=== PATIENT | male | born 1975 | race African-American/Black ===

== ENCOUNTER 2018-08-02 11:01 | Emergency (ER) | payer MEDICAID ==
[~2018-08-02] VITALS: Ht 185.4 cm; Wt 161.5 kg
[2018-08-02] MEDS ORDERED: ASPirin 81 mg TAB PO ONE (13:15)
[2018-08-02 13:51] LABS: Hematocrit 44.9 % (41.0-53.0); Hemoglobin 14.6 g/dL (13.5-17.5); Mean Corpuscular Hemoglobin 30.7 pg (28.0-32.0); Mean Corpuscular Hgb Conc. 32.6 g/dL (32.0-36.0); Mean Corpuscular Volume 94.3 fL (80.0-100.0); Platelet Count (auto) 284 10^3/uL (140-450); Red Blood Cells 4.76 10^6/uL (4.5-5.90); White Blood Cell 5.8 10^3/uL (4.4-10.8)
[2018-08-02 13:59] LABS: INR 0.93 (0.9-1.15); Partial Thromboplastin Time 22.8 sec (23.78-33.04)
[2018-08-02 14:24] LABS: Basophils % (manual) 0 (0.0-2.0); Blast Cells 0; Eosinophils % (manual) 0 (0-7); Metamyelocytes % 0; Myelocytes % 0; Promyelocytes % 0; Reactive Lymphocytes 0
[2018-08-02] MEDS ORDERED: MORPHINE SULF INJ 2 MG/ML SYRINGE 1ML IV ONE ×2 (14:30→19:45)
[2018-08-02] MEDS ORDERED: ONDANSETRON HCL 4 MG/2 ML VIAL IV ONE ×2 (14:30→19:45)
[2018-08-02 15:15] LABS: Urine Bacteria NONE SEEN /hpf (None Seen); Urine Blood Negative /uL (Negative); Urine Mucus FEW (None Seen); Urine Specific Gravity 1.016 (1.001-1.035); Urine WBC 4 /hpf (0 - 3)
[2018-08-02 16:18] LABS: Band Neutrophils % (manual) 2; Lymphocytes % (manual) 21 (10.0-50.0); Monocytes % (manual) 6 (0-12)
[2018-08-02 16:51] LABS: Albumin 3.6 g/dL (3.4-5.0); BUN/Creatinine Ratio 9.4; Calcium 8.8 mg/dL (8.5-10.1); Potassium 4.8 mmol/L (3.5-5.1)
[2018-08-02 16:53] LABS: Bilirubin, Total 0.3 mg/dL (0.2-1.0); Total Protein 9.2 g/dL (6.4-8.2)
[2018-08-02 20:10] VITALS: BP 148/83
== END 2018-08-02 20:21 | disposition short-term general hospital (02) ==
LOC: ER 11:06
DX: S22.058A Other fracture of T5-T6 vertebra, initial encounter for closed fracture (principal); R07.89 Other chest pain; I10 Essential (primary) hypertension; F17.210 Nicotine dependence, cigarettes, uncomplicated; X58.XXXA Exposure to other specified factors, initial encounter; Y93.89 Activity, other specified; Y99.8 Other external cause status; Y92.89 Other specified places as the place of occurrence of the external cause
CPT/HCPCS: 36415; 71046; 71250; 72128; 80053; 81001; 83735; 83880; 84443; 84484; 85007; 85027; 85379; 85610; 85730; 93005; 94761; 96374; 96375; 96376; 99291; J2270; J2405

== ENCOUNTER 2018-09-22 08:52 | Emergency (ER) | payer MEDICAID ==
[~2018-09-22] VITALS: Ht 185.4 cm; Wt 81.2 kg
[2018-09-22] MEDS ORDERED: ONDANSETRON HCL 4 MG/2 ML VIAL IM ONE (11:15)
[2018-09-22] MEDS ORDERED: HYDROmorphone HCL 2 MG/ML VL IM ONE (11:15)
[2018-09-22 12:21] VITALS: BP 130/95
== END 2018-09-22 12:28 | disposition home or self-care (01) ==
LOC: ER 08:55
DX: G89.4 Chronic pain syndrome (principal); M79.605 Pain in left leg; I10 Essential (primary) hypertension
CPT/HCPCS: 96372; 99283; J1170; J2405

== ENCOUNTER 2018-11-05 23:29 | Emergency (ER) | payer MEDICAID ==
[~2018-11-05] VITALS: Ht 181.6 cm; Wt 133.4 kg
[2018-11-06] MEDS ORDERED: ACETAMINOPHEN 325 MG TAB PO ONE
[2018-11-06 00:16] LABS: Basophils # (auto) 0 uL; Basophils % (auto) 0.5 % (0.0-2.0); Eosinophils # (auto) 0 uL; Eosinophils % (auto) 0.5 % (0.0-7.0); Hematocrit 38.8 % (41.0-53.0); Hemoglobin 12.7 g/dL (13.5-17.5); Lymphocytes # (auto) 0.5 uL; Lymphocytes % (auto) 13.5 % (10.0-50.0); Mean Corpuscular Hemoglobin 31.1 pg (28.0-32.0); Mean Corpuscular Hgb Conc. 32.7 g/dL (32.0-36.0); Monocytes # (auto) 0.2 uL; Monocytes % (auto) 6.2 % (0.0-12.0); Neutrophils # (auto) 3.1 uL; Neutrophils % (auto) 79.3 % (37.0-80.0); Nucleated Red Blood Cells % 0.4 %; Platelet Count (auto) 236 10^3/uL (140-450); Red Blood Cells 4.08 10^6/uL (4.5-5.90); Red Cell Distribution Width 16.3 % (11.8-14.3); White Blood Cell 3.9 10^3/uL (4.4-10.8)
[2018-11-06 00:39] LABS: Albumin 3.1 g/dL (3.4-5.0); BUN/Creatinine Ratio 9.4; Calcium 8.1 mg/dL (8.5-10.1); Potassium 3.6 mmol/L (3.5-5.1)
[2018-11-06 00:40] VITALS: BP 120/64
[2018-11-06 00:41] LABS: Bilirubin, Total 0.4 mg/dL (0.2-1.0); Total Protein 8.8 g/dL (6.4-8.2)
[2018-11-06 01:23] LABS: Urine Amorphous Crystal FEW /hpf (None Seen); Urine Bacteria FEW /hpf (None Seen); Urine Blood TRACE /uL (Negative); Urine Hyaline Cast MOD /lpf (0 - 2); Urine Mucus FEW (None Seen); Urine Specific Gravity 1.023 (1.001-1.035); Urine WBC 10 /hpf (0 - 3)
[2018-11-06] MEDS ORDERED: cefTRIAXone SOD 1,000 MG VL IM ONE (02:30)
== END 2018-11-06 03:20 | disposition home or self-care (01) ==
LOC: ER 23:34
DX: R50.9 Fever, unspecified (principal); N39.0 Urinary tract infection, site not specified; C90.00 Multiple myeloma not having achieved remission; I10 Essential (primary) hypertension
CPT/HCPCS: 36415; 80053; 81001; 83605; 85025; 87040; 96372; 99283; J0696

== ENCOUNTER 2019-02-02 10:39 | Inpatient (IN) | payer MEDICAID ==
[~2019-02-02] VITALS: Ht 180.3 cm; Wt 125.1 kg
[~2019-02-02 10:39] MED LIST: ACYC1CAP23 PO; CHOL20007 OR
[2019-02-02 11:19] LABS: Basophils # (auto) 0 uL; Basophils % (auto) 0.3 % (0.0-2.0); Eosinophils # (auto) 0.1 uL; Eosinophils % (auto) 3.4 % (0.0-7.0); Hematocrit 44.3 % (41.0-53.0); Hemoglobin 14.1 g/dL (13.5-17.5); Lymphocytes # (auto) 1.2 uL; Lymphocytes % (auto) 32.6 % (10.0-50.0); Mean Corpuscular Hemoglobin 29.3 pg (28.0-32.0); Mean Corpuscular Hgb Conc. 31.8 g/dL (32.0-36.0); Mean Corpuscular Volume 92.1 fL (80.0-100.0); Monocytes # (auto) 0.4 uL; Monocytes % (auto) 9.3 % (0.0-12.0); Neutrophils # (auto) 2.1 uL; Neutrophils % (auto) 54.4 % (37.0-80.0); Nucleated Red Blood Cells % 0.1 %; Platelet Count (auto) 207 10^3/uL (140-450); Red Blood Cells 4.81 10^6/uL (4.5-5.90); Red Cell Distribution Width 16.5 % (11.8-14.3); White Blood Cell 3.8 10^3/uL (4.4-10.8)
[2019-02-02 11:35] LABS: Albumin 3.1 g/dL (3.4-5.0); BUN/Creatinine Ratio 9.1; Calcium 7.8 mg/dL (8.5-10.1); Potassium 3.2 mmol/L (3.5-5.1)
[2019-02-02 11:37] LABS: Bilirubin, Total 0.8 mg/dL (0.2-1.0); Total Protein 7.5 g/dL (6.4-8.2)
[2019-02-02] MEDS ORDERED: SODIUM CHLORIDE 0.9% 1,000 ML IV ONE ×2 (11:39)
[2019-02-02] MEDS ORDERED: POTASSIUM EFFERVESENT TAB 25 MEQ PO ONE (12:00)
[2019-02-02] MEDS ORDERED: cefTRIAXone 1GM/50ML D5W 50 ML IV ONE (12:15)
[2019-02-02] MEDS ORDERED: AZITHROMYCIN 500MG/ 250ML 250 ML IV ONE (12:15)
[2019-02-02] MEDS ORDERED: hydrALAZINE HCL 20 MG/ML VL IV PRN (14:45)
[2019-02-02] MEDS ORDERED: HYDROcodone-ACET 5/325MG TAB PO PRN (14:45)
[2019-02-02] MEDS ORDERED: ONDANSETRON HCL 4 MG/2 ML VIAL IV PRN (14:45)
[2019-02-02] MEDS ORDERED: MORPHINE SULF INJ 2 MG/ML SYRINGE 1ML IV PRN ×2 (14:45)
[2019-02-02] MEDS ORDERED: ACETAMINOPHEN 500 MG TAB PO PRN (14:45)
[2019-02-02] MEDS ORDERED: NITROGLYCERIN 0.4 MG SL TAB SL PRN (14:45)
--- NOTE | 2019-02-02 15:49 | NUR ---
REPORT RECEIVED FROM EMILIE CARMONA IN ER.
[2019-02-02 16:12] LABS: Urine Bacteria NONE SEEN /hpf (None Seen); Urine Blood Negative /uL (Negative); Urine Specific Gravity 1.011 (1.001-1.035); Urine WBC 1 /hpf (0 - 3)
[2019-02-02 17:00] VITALS: BP 136/83
--- NOTE | 2019-02-02 17:15 | NUR ---
RECEIVED PATIENT TO THE FLOOR, AWAKE ALERT AND ORIENTED. INSTRUCTED THE PATIENT ON THE PLAN OF CARE. ALL QUESTIONS AND CONCERNS ANSWERED. BED LOCKED IN LOWEST POSITION WITH TWO SIDE RAILS UP AND CALL LIGHT IN REACH. PER PATIENT FIANCE WILL BRING HOME MEDICATION LIST.
[2019-02-02] MEDS ORDERED: FERR-20 PO (19:07)
[2019-02-02] MEDS ORDERED: HYDR25TA4 PO (19:08)
[2019-02-02] MEDS: ALBUTEROL SULF 2.5 MG/0.5ML(0.5%) NEB SOLN NEB SCH (19:11)
[2019-02-02] MEDS: IPRATROPIUM BROM 0.5 MG/2.5ML INH SOL NEB SCH (19:12)
--- NOTE | 2019-02-02 19:40 | NUR ---
Opening Shift Note Assumed care of patient, awake and alert. No S/S of distress/SOB or pain. Updated on POC and to call for assist PRN, patient verbalized understanding, call light within reach, will continue to monitor for changes Q1hr and PRN.
[2019-02-02 20:00] VITALS: BP 126/67
[2019-02-02 21:46] VITALS: BP 126/67
[2019-02-03 00:56] VITALS: BP 126/67
[2019-02-03 05:00] VITALS: BP 130/66
[2019-02-03] MEDS: ALBUTEROL SULF 2.5 MG/0.5ML(0.5%) NEB SOLN NEB SCH ×2 (06:33→12:58)
[2019-02-03] MEDS: IPRATROPIUM BROM 0.5 MG/2.5ML INH SOL NEB SCH ×2 (06:33→12:58)
[2019-02-03 06:42] LABS: Albumin 2.8 g/dL (3.4-5.0); BUN/Creatinine Ratio 7.1; Calcium 7.3 mg/dL (8.5-10.1); Potassium 3.6 mmol/L (3.5-5.1)
[2019-02-03 06:45] LABS: Bilirubin, Total 0.8 mg/dL (0.2-1.0); Total Protein 6.7 g/dL (6.4-8.2)
[2019-02-03 06:46] LABS: Basophils # (auto) 0 uL; Basophils % (auto) 0.5 % (0.0-2.0); Eosinophils # (auto) 0.2 uL; Eosinophils % (auto) 5.9 % (0.0-7.0); Hematocrit 39.4 % (41.0-53.0); Hemoglobin 12.7 g/dL (13.5-17.5); Lymphocytes # (auto) 1.2 uL; Lymphocytes % (auto) 32.2 % (10.0-50.0); Mean Corpuscular Hemoglobin 29.4 pg (28.0-32.0); Mean Corpuscular Hgb Conc. 32.2 g/dL (32.0-36.0); Mean Corpuscular Volume 91.4 fL (80.0-100.0); Monocytes # (auto) 0.4 uL; Neutrophils # (auto) 1.8 uL; Neutrophils % (auto) 49.4 % (37.0-80.0); Nucleated Red Blood Cells % 0.1 %; Platelet Count (auto) 184 10^3/uL (140-450); Red Blood Cells 4.31 10^6/uL (4.5-5.90); Red Cell Distribution Width 16.4 % (11.8-14.3); White Blood Cell 3.7 10^3/uL (4.4-10.8)
--- NOTE | 2019-02-03 07:20 | NUR ---
Opening Shift Note Report received from NOC RN. Round made with student nurse, patient sleeping in bed without S/S of distress. This RN arosed patient to introduce to this RN and student. Patient verbalized understanding to call if needing assistance. Call butler within reach, side rails up x2.
--- NOTE | 2019-02-03 07:25 | NUR ---
Respiratory note: PT ASSESSED FOR PRN. PT WEARS BIPAP AT NOC. FOUND PT OFF BIPAP. PT ON 1 LPM NC SP02 97%. PT AWAKE ALERT AND RESPONSIVE. PT IS IN NO DISTRESS AT THIS TIME. NO TX IS INDICATED AT THIS TIME. INFORMED PT IF BECOMES SOB OR WHEEZE TO PUSH CALL LIGHT AND RT WILL BE PAGED
[2019-02-03 09:00] VITALS: BP_SYST 12; BP_SYST 123; BP_DIAS 70
[2019-02-03] MEDS ORDERED: cefTRIAXone 1GM/50ML D5W 50 ML IV SCH (09:00)
[2019-02-03] MEDS ORDERED: AZITHROMYCIN 500MG/ 250ML 250 ML IV SCH (10:00)
--- NOTE | 2019-02-03 11:00 | NUR ---
MD Rounded Dr. Ruiz stated he was going to review the patients lab values and may end up discharging him home today on oral antibiotics. Patient verbalized understanding. After MD left room, patient asked about possibly getting breathing treatments prescribed at home. Will ask MD about this prior to discharge.
[2019-02-03 13:00] VITALS: BP 121/69
[2019-02-03 15:43] VITALS: BP 100/71
--- NOTE | 2019-02-03 16:58 | NUR ---
Discharge Patient given discharge instructions by student in supervision of this RN. Patient verbalized understanding. IV discontinued with tip intact, pressure dressing applied. Patient transported in wheelchair with [employer]IATE and family.
[2019-02-03] MEDS ORDERED: DOXYCYCLINE 100 MG TAB/CAP PO SCH (22:00)
--- NOTE | 2019-02-04 11:53 | NUR ---
Discharge planning per SS consult, patient has orders for a nebulizer machine for use at home. Placed a call to patient for clarification. Patient advised that the referral needed to be sent to [facility] and provided two numbers: [phone], and [phone]. Referral sent to [facility], placed a follow up call, spoke with Edilberto and was advised that they did received the order and they will process it and have it delivered to the patient today. Placed a follow up call to patient to advise of update on order and delivery.Patient verbalized understanding.
== END 2019-02-03 16:58 | disposition home or self-care (01) | DRG 139 ==
LOC: ER 10:41 → EAST 10:42
PROVIDERS: ADMIT Nurse Practitioner Acute Care; ATTEND Internal Medicine
DX: J18.1 Lobar pneumonia, unspecified organism (principal); I11.0 Hypertensive heart disease with heart failure; E44.0 Moderate protein-calorie malnutrition; I50.32 Chronic diastolic (congestive) heart failure; C90.01 Multiple myeloma in remission; E86.0 Dehydration; E66.9 Obesity, unspecified; E87.6 Hypokalemia; Z82.0 Family history of epilepsy and other diseases of the nervous system; Z82.49 Family history of ischemic heart disease and other diseases of the circulatory system; Z83.3 Family history of diabetes mellitus; Z68.38 Body mass index [BMI] 38.0-38.9, adult; Z79.899 Other long term (current) drug therapy
CPT/HCPCS: 36415; 71045; 80053; 81001; 85025; 87040; 87804; 93005; 94640; 96361; 96365; 96368; G0378; J0696

== ENCOUNTER 2022-07-09 10:12 | Emergency (ER) | payer MEDICAID ==
[~2022-07-09] VITALS: Ht 180.3 cm; Wt 143.7 kg
[~2022-07-09 10:12] MED LIST changes: +FERR-20 PO; +HYDR25TA4 PO
[2022-07-09 13:55] VITALS: BP 15/101
[2022-07-09] MEDS ORDERED: diphenhdrAMINE HCL 50 MG/1 ML VL IM ONE (14:15)
[2022-07-09] MEDS ORDERED: ACETAMINOPHEN 500 MG TAB PO ONE (14:15)
[2022-07-09] MEDS ORDERED: cefTRIAXone SOD 1,000 MG VL IM ONE (15:15)
[2022-07-09] MEDS ORDERED: CEPH-510 PO (15:18)
[2022-07-09] MEDS ORDERED: ACET1CAP14 PO (15:18)
[2022-07-09] MEDS ORDERED: DIPH25CA66 PO (15:22)
[2022-07-09] MEDS ORDERED: DexAMETHasone SOD PHOS 10MG/1ML VIAL INJ IM ONE (15:30)
== END 2022-07-09 15:22 | disposition home or self-care (01) ==
LOC: ER 10:12
DX: T78.40XA Allergy, unspecified, initial encounter (principal); L03.211 Cellulitis of face; I10 Essential (primary) hypertension; Z79.899 Other long term (current) drug therapy; Y92.89 Other specified places as the place of occurrence of the external cause
CPT/HCPCS: 70486; 96372; 99285; J0696; J1100; J1200

== ENCOUNTER 2022-08-05 11:41 | Emergency (ER) | payer MEDICAID ==
[~2022-08-05] VITALS: Ht 180.3 cm; Wt 141.0 kg
[~2022-08-05 11:41] MED LIST changes: +ACET1CAP14 PO; +CEPH-510 PO; +DIPH25CA66 PO
[2022-08-05 14:00] VITALS: BP 141/74
[2022-08-05] MEDS ORDERED: KETOROLAC TROMETH 30 MG/ML 1ML VIAL IM ONE (15:15)
[2022-08-05] MEDS ORDERED: ACET1CAP14 PO (15:18)
== END 2022-08-05 15:52 | disposition home or self-care (01) ==
LOC: ER 11:41
DX: S93.401A Sprain of unspecified ligament of right ankle, initial encounter (principal); I10 Essential (primary) hypertension; X58.XXXA Exposure to other specified factors, initial encounter; Y93.01 Activity, walking, marching and hiking; Y92.89 Other specified places as the place of occurrence of the external cause; Y99.8 Other external cause status
CPT/HCPCS: 73610; 96372; 99283; J1885

== ENCOUNTER 2024-07-26 08:47 | Emergency (ER) | payer MEDICAID ==
[~2024-07-26] VITALS: Ht 180.3 cm; Wt 131.5 kg
[~2024-07-26 08:47] MED LIST changes: -ACYC1CAP23 PO; +ACYC200C22 PO; -FERR-20 PO; +FERR325T24 PO
[2024-07-26 08:54] VITALS: BP 131/94; PULSE 88; RESP 18; TEMP 97.1; O2SAT 99
--- NOTE | 2024-07-26 09:12 | ED.PDOC ---
Back pain HPI HPI Comments 49 y/o M, presents to the ED for CC of back pain. Patient states, that he has been experiencing right lumbar back pain x10 days. Patient endorses, that he was bending over when he heard a "snapping" sound; comments on SHX of lumbar vertebrae. Patient relays, trying over the counter pain medications with no relief. Patient denies weakness, numbness, inability to bear weight onto legs, neck pain, or headache. No other associated symptoms, modifiers, recent injuries or sick contacts present at this time. Chief Complaint: Back Pain Time Seen by MD: 09:03 Primary Care Provider: DR. Aviva MCGILL Reviewed Notes: Nurses Notes, Medications, Allergies Allergies: Coded Allergies: NO KNOWN ALLERGIES (Unverified , 08/02/18) Home Meds Active Scripts Acetaminophen (Tylenol) 325 Mg Cap, 325 MG PO Q4HPRN PRN, #30 CAP 0 Refills Take 1-2 caps po q4h prn for pain (Do not exceed 3,000mg of acetaminophen in 24 hours) Prov:JAMAL CALERO [facility] 08/05/22 Diphenhydramine Hcl (Benadryl Allergy) 25 Mg Cap, 1 CAP PO Q6HPRN PRN, #30 CAP 1 Refill Take 1-2 caps PO every 4-6 hours as needed for allergic reaction. Max: 12 caps/24 hours Prov:JAMAL CALERO [facility] 07/09/22 Acetaminophen (Tylenol) 325 Mg Cap, 325 MG PO Q4HPRN PRN, #30 CAP 0 Refills Take 1-2 caps po q4h prn for pain (Do not exceed 3,000mg of acetaminophen in 24 hours) Prov:JAMAL CALERO [facility] 07/09/22 Cephalexin ( Keflex 500) 500 Mg Cap, 1 CAP PO QID for 7 Days, #28 CAP 0 Refills Prov:JAMAL CALERO [facility] 07/09/22 Reported Medications Hydrochlorothiazide (Hydrochlorothiazide) 25 Mg Tab, 25 MG PO DAILY for 30 Days, MG 02/02/19 Ferrous Sulfate (Ferrous Sulfate) 325 Mg Tab, 325 MG PO TIDWM for 30 Days 02/02/19 Cholecalciferol (VITAMIN D3) 2,000 Unit Tab, 5000 UNIT OR DAILY, TAB 11/29/18 Acyclovir (Acyclovir) 200 Mg Cap, 400 MG PO BID, TAB 11/29/18 Information Source: Patient Mode of Arrival: Ambulatory Timing: Days Duration: Since onset Location of Back pain: (R) Lumbar Severity: Moderate Prehospital treatment: None Onset: Bending Modifying Factors: Nothing Past Medical History PAST MEDICAL HISTORY: HTN Surgical History: Denies all surgeries Family History Family History: No family hx of Heart blue, No family hx of HTN Social History Smoker: Non-Smoker Alcohol: Denies ETOH Use Drugs: Denies Drug Use Lives In: Home Constitutional: denies: chills, diaphoresis, fatigue, fever, malaise, sweats, weakness, others EENTM: denies: blurred vision, double vision, ear bleeding, ear discharge, ear drainage, ear pain, ear ringing, eye pain, eye redness, hearing loss, mouth pain, mouth swelling, nasal discharge, nose bleeding, nose congestion, nose pain, photophobia, tearing, throat pain, throat swelling, voice changes, others Respiratory: denies: cough, hemoptysis, orthopnea, SOB at rest, shortness of breath, SOB with excertion, stridor, wheezing, others Cardiovascular: denies: chest pain, dizzy spells, diaphoresis, Dyspnea on exertion, edema, irregular heart beat, left arm pain, lightheadedness, palpitations, PND, syncope, others Gastrointestinal: denies: abdomen distended, abdominal pain, blood streaked bowels, constipated, diarrhea, dysphagia, difficulty swallowing, hematemesis, melena, nausea, poor appetite, poor fluid intake, rectal bleeding, rectal pain, vomiting, others Genitourinary: denies: burning, dysuria, flank pain, frequency, hematuria, incontinence, penile discharge, penile sore, pain, testicle pain, testicle swelling, urgency, others Neurological: denies: dizziness, fainting, headache, left sided numbness, left sided weakness, numbness, paresthesia, pre-existing deficit, right sided numbness, right sided weakness, seizure, speech problems, tingling, tremors, weakness, others Musculoskeletal: reports: back pain; denies: gout, joint pain, joint swelling, muscle pain, muscle stiffness, neck pain, others Integumetry: denies: bruises, change in color, change in hair/nails, dryness, laceration, lesions, lumps, rash, wounds, others Allergic/Immunocompromised: denies: Difficulty Healing, Frequent Infections, Hives, Itching, others Hematologic/Lymphatic: denies: anemia, blood clots, easy bleeding, easy bruising, swollen glands, others Endocrine: denies: excessive hunger, excessive sweating, excessive thirst, excessive urination, flushing, intolerance to cold, intolerance to heat, unexplained weight gain, unexplained weight loss, others Psychiatric: denies: anxiety, bipolar disorder, depression, hopeless, panic disorder, schizophrenia, sleepless, suicidal, others All Other Systems: Reviewed and Negative Physical Exam General Appearance: No Apparent Distress, Normal HEENT: Normal ENT Inspection, Pharynx Normal, TMs Normal Neck: Full Range of Motion, Non-Tender, Normal, Normal Inspection Respiratory: Chest Non-Tender, Lungs Clear, No Accessory Muscle Use, No Respiratory Distress, Normal Breath Sounds Cardiovascular: No Edema, No JVD, No Murmur, No Gallop, Normal Peripheral Pulses, Regular Rate/Rhythm Breast Exam: Deferred Gastrointestinal: No Organomegaly, Non Tender, No Pulsatile Mass, Normal Bowel Sounds, Soft Genitalia: Deferred Pelvic: Deferred Rectal: Deferred Extremities: No calf tenderness, Normal capillary refill, Normal inspection, Normal range of motion, Non-tender, No pedal edema Musculoskeletal : Location: Right Extremity Location: Back (PERILUMBAR TENDERNESS) Apperance: Tenderness: Moderate (PERILUMBAR TENDERNESS) Neurologic: Alert, pallet stone inserter II-XII nml as Tested, No Motor Deficits, Normal Affect, Normal Mood, No Sensory Deficits Cerebellar Function: Normal Reflexes: Normal Skin: Dry, Normal Color, Warm Lymphatic: No Adenopathy Was a procedure done? Was a procedure done?: No Back Pain Differential Dx Differential Diagnosis: Musculoskeletal Pain X-Ray, Labs, Meds, VS Vital Signs Date Time Temp Pulse Resp B/P (MAP) Pulse Ox O2 Delivery O2 Flow Rate FiO2 07/26/24 08:54 97.1 88 18 131/94 (106) 99 97.1 07/26/24 08:52 88 18 99 Room Air 07/26/24 08:52 97.1 88 18 131/94 (106) 99 97.1 Current Medications Medications (Trade) Dose Ordered Sig/Ramiro Route Start Time Stop Time Status Last Admin Acetaminophen/ Hydrocodone Bitart ([place] 10/325MG Tab) 2 tab ONCE ONCE PO 07/26/24 09:15 07/26/24 09:16 DC 07/26/24 09:14 Ondansetron HCl (Zofran Po) 4 mg ONCE ONCE PO 07/26/24 09:15 07/26/24 09:19 DC 07/26/24 09:23 [place] [id number] Ph: [phone] DIAGNOSTIC IMAGING Diagnostic Imaging Report : [id number] Signed PATIENT: PORSCHE DIA ACCT: [id number] UNIT: [id number] : 1975 LOC: ER ROOM / BED: / AGE / SEX: 49 / M ADM STATUS: REG ER SERVICE 3 ORDERING PHYSICIAN: JORDIN VELAZQUEZ MD PROCEDURE(s): LUMB2 - LUMBAR SPINE 3 VIEW REASON: hx of multiple myeloma with worsening back pain ORDER NUMBER(s): [id number], ACCESSION NUMBER(s): [id number] INDICATION: hx of multiple myeloma with worsening back pain TECHNIQUE: 4 views of the lumbar spine were obtained. COMPARISON: None FINDINGS: There are no acute fractures or subluxations. Mild multilevel degenerative changes of the spine. No suspicious osseous lesion. IMPRESSION: No acute fracture or subluxation. ATED BY: JESUS LUIS MD DICTATED DATE/TIME: 07/26/24947 SIGNED BY: JESUS LUIS MD SIGNED DATE/TIME: 07/26/24947 CC: Time of 1ST Reevaluation: 09:33 Reevaluation 1ST: Unchanged Patient Education/Counseling: Diagnosis, Treatment Family Education/Counseling: No Family Present Departure 1 Departure Time of Disposition: 10:34 (Patient's workup is benign we will discharge patient home with outpatient follow up) Impression: Primary Impression: Lumbar strain Qualified Codes: S39.012A - Strain of muscle, fascia and tendon of lower back, initial encounter Disposition: HOME / SELF CARE / HOMELESS Condition: Stable Additional Instructions: Your x-rays today are benign with no new injuries. You should continue to take your regular medications. You were prescribed pain medication. Please take as directed. You should follow up with your regular doctors. If your symptoms worsen or you have any other concerns please return to the emergency room. e-Prescriptions Oxycodone HCl (Oxycodone Hydrochloride) 5 Mg Tab 5 MG PO QID PRN for 4 Days, #16 TAB Prov: JORDIN VELAZQUEZ MD 07/26/24 Discharged With: Self Critical Care Note Critical Care Time?: No Stability Stability form required: No Heart Score Heart Score: Heart Score Response (Comments) Value History N/A 0 EKG N/A 0 Age N/A 0 Risk Factors N/A 0 Troponin N/A 0 Total 0 I personally scribed for JORDIN VELAZQUEZ MD ([email or web address]) on 07/26/24 at 09:12. Electronically submitted by Betty Epperson ([email or web address]). I personally scribed for JORDIN VELAZQUEZ MD ([email or web address]) on 07/26/24 at 10:10. Electronically submitted by Betty Epperson ([email or web address]). JORDIN VELAZQUEZ MD Jul 26, 2024 09:12
[2024-07-26] MEDS: HYDROcodone-ACET 10/325MG TAB PO ONE (09:14)
[2024-07-26] MEDS: ONDANSETRON ODT 4 MG TAB PO ONE (09:23)
--- NOTE | 2024-07-26 09:51 | DVH ---
INDICATION: hx of multiple myeloma with worsening back pain TECHNIQUE: 4 views of the lumbar spine were obtained. COMPARISON: None FINDINGS: There are no acute fractures or subluxations. Mild multilevel degenerative changes of the spine. No suspicious osseous lesion. IMPRESSION: No acute fracture or subluxation.
[2024-07-26] MEDS ORDERED: OXYC-900 PO (10:45)
== END 2024-07-26 10:52 | disposition home or self-care (01) ==
LOC: ER 08:47
DX: S39.012A Strain of muscle, fascia and tendon of lower back, initial encounter (principal); I10 Essential (primary) hypertension; Z79.899 Other long term (current) drug therapy; X58.XXXA Exposure to other specified factors, initial encounter; Y93.89 Activity, other specified; Y92.89 Other specified places as the place of occurrence of the external cause; Y99.8 Other external cause status
CPT/HCPCS: 72100; 99283; Q0162